=== PATIENT | male | born 1990 | race Caucasian/White ===

== ENCOUNTER 2017-07-29 18:58 | Emergency (ER) | payer MEDICAID ==
[~2017-07-29] VITALS: Ht 182.9 cm; Wt 61.5 kg
[~2017-07-29 18:58] MED LIST: ACET-8386 PO
[2017-07-29 19:05] VITALS: BP 139/90
--- NOTE | 2017-07-29 19:10 | NUR ---
PT AMBULATES TO BED 2
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
[2017-07-29] MEDS ORDERED: TETRACAINE HCL/PF 0.5% OPTH 4 ML BTL OP ONE (19:40)
[2017-07-29] MEDS ORDERED: FLUORESCEIN OPTH STRIP 0.6 MG OP ONE (19:40)
--- NOTE | 2017-07-29 20:27 | NUR ---
KAE TY AT BEDSIDE AT THIS TIME.
[2017-07-29 21:26] VITALS: BP 122/89
== END 2017-07-29 21:26 | disposition home or self-care (01) ==
LOC: MED 18:58
DX: H57.8 Other specified disorders of eye and adnexa (principal); R51 Headache; Z79.899 Other long term (current) drug therapy
CPT/HCPCS: 99283

== ENCOUNTER 2018-10-02 12:46 | Emergency (ER) | payer BC, MEDICAID ==
[~2018-10-02] VITALS: Ht 170.2 cm; Wt 61.3 kg
[2018-10-02 13:05] VITALS: BP 117/67
--- NOTE | 2018-10-02 14:02 | NUR ---
PT AMBULATED TO BED 9 WITH STEADY GAIT.
--- NOTE | 2018-10-02 14:08 | NUR ---
PT C/O LOWER BACK PAIN X3 DAY, DENIES ANY INJURIES OR HEMATURIA. PATIENT STATES HIS DULL LOWER BACK PAIN IS 6/10 AT THIS TIME; VSS; PATIENT POSITIONED FOR COMFORT; HOB ELEVATED; BEDRAILS UP X1; BED DOWN. ER MD MADE AWARE OF PT STATUS.
--- NOTE | 2018-10-02 14:18 | NUR ---
DR. GARCIA BEDSIDE EVALUATING PT
[2018-10-02] MEDS ORDERED: KETOROLAC 30 MG/ML VIAL IM ONE (14:25)
[2018-10-02 14:53] VITALS: BP 112/62
--- NOTE | 2018-10-02 14:53 | NUR ---
Patient discharged with v/s stable. Written and verbal after care instructions given and explained. Patient alert, oriented and verbalized understanding of instructions. Ambulatory with steady gait. All questions addressed prior to discharge. ID band removed. Patient advised to follow up with PMD. Rx of Valium and Ibuprofen given. Patient educated on indication of medication including possible reaction and side effects. Opportunity to ask questions provided and answered.
== END 2018-10-02 14:53 | disposition home or self-care (01) ==
LOC: MED 12:46
DX: M54.9 Dorsalgia, unspecified (principal); Z79.1 Long term (current) use of non-steroidal anti-inflammatories (NSAID)
CPT/HCPCS: 96372; 99283; J1885

== ENCOUNTER 2022-11-13 08:37 | Emergency (ER) | payer BC, MEDICAID ==
[~2022-11-13] VITALS: Ht 177.8 cm; Wt 65.8 kg
[~2022-11-13 08:37] MED LIST changes: -ACET-8386 PO; +ACET-8905 PO
[2022-11-13 08:47] VITALS: BP 117/76; PULSE 65; RESP 20; TEMP 97.8; O2SAT 100
[2022-11-13 09:20] VITALS: O2SAT 100
[2022-11-13] MEDS ORDERED: IBUP-2213 PO (09:47)
[2022-11-13] MEDS ORDERED: IBUPROFEN 600 MG TAB PO ONE (09:50)
[2022-11-13 10:07] VITALS: BP 129/75; PULSE 70; RESP 18; TEMP 97.6
[2022-11-13 10:14] VITALS: O2SAT 98
== END 2022-11-13 10:07 | disposition home or self-care (01) ==
LOC: MED 08:37
DX: R07.89 Other chest pain (principal); Z87.09 Personal history of other diseases of the respiratory system; Z79.1 Long term (current) use of non-steroidal anti-inflammatories (NSAID); Z79.899 Other long term (current) drug therapy
CPT/HCPCS: 71045; 93005; 99283